=== PATIENT | male | born 1985 | race Two or more races ===

== ENCOUNTER 2018-05-01 02:07 | Emergency (ER) | payer SELFPAY ==
[2018-05-01] MEDS ORDERED: AZITHROMYCIN 500 MG TABLET ONE (03:25)
--- NOTE | 2018-05-01 04:35 | NUR ---
PT. WAS BIB [facility] DURING DOWNTIME AND D/C DURING DOWNTIME. PLEASE SEE DOWNTIME PAPER CHART FOR MORE DETAILS.
== END 2018-05-01 04:38 | disposition home or self-care (01) ==
LOC: ED 03:26
DX: T59.3X1A Toxic effect of lacrimogenic gas, accidental (unintentional), initial encounter (principal); F17.200 Nicotine dependence, unspecified, uncomplicated; F41.9 Anxiety disorder, unspecified; Y92.89 Other specified places as the place of occurrence of the external cause
CPT/HCPCS: 71045; 99283